=== PATIENT | female | born 1945 | race Caucasian/White ===

== ENCOUNTER 2018-10-30 04:39 | Emergency (ER) | payer OTHER ==
[2018-10-30] MEDS ORDERED: ASPIRIN 81 MG CHEWABLE TAB PO ONE (05:03)
[2018-10-30] MEDS ORDERED: NITROGLYCERIN 0.4 MG BTL SL ONE (05:11)
--- NOTE | 2018-10-30 05:16 | EDPHY ---
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 This morning. She was already awake at the time when the pain started gradually. She describes the pain as dull and it radiates to her left shoulder and upper back. She had pain in her left shoulder and back yesterday but thought it was from using her computer all day. The pain is worse when she takes a deep breath and nothing seems to relieve the pain. She took 1 Vicodin prior to arrival. She denies shortness of breath , nausea, vomiting, or diaphoresis. No recent illness. REVIEW OF SYSTEMS: Constitutional: No fever, no chills. Eyes: No discharge. ENT: No sore throat. Respiratory: No cough, no shortness of breath. Cardiac: No palpitations. Gastrointestinal: No abdominal pain, no vomiting. Genitourinary: No dysuria. Musculoskeletal: No leg pain or swelling. Skin: No rashes. Neurological: No headache. Source: Patient, Family (daughter) - Personal History Current Tetanus Diphtheria and Acellular Pertussis (TDAP): No Tetanus Vaccine Date: within 10 years - Medical/Surgical History PMH: PMH: Radiation induced coronary artery disease requiring angioplasty in 1997, normal nuclear stress test in 2011, breast cancer diagnosed 1st in 1978 with a recurrence in 1981, hyperlipidemia, gout, history of chronic bronchitis, history of diverticulitis, history of cardiac murmur due to aortic sclerosis. PSH: Left simple mastectomy in , knee arthroscopy followed by bilateral total knee arthroplasties, appendectomy, bilateral cataract surgery. FH: Mother from a myocardial infarction at age 70, maternal grandfather had a stroke. Her father had prostate cancer. No history of premature coronary artery disease or clotting disorders. Allergy to penicillin which causes a rash Medications include atenolol 50 mg daily, low-dose aspirin, lisinopril/ hydrochlorothiazide 20-12.5 1 tablet daily, omeprazole 40 mg daily, allopurinol 100 mg daily sertraline 50 mg daily, simvastatin 40 mg daily. O2 at night. PCP: Dr. Neymar Marroquin; primary clock and watch assembler Dr. Melchor Galvez. Hx Asthma: Yes Hx Chronic Respiratory Disease: Yes Hx Diabetes: No Hx Cardiac Disease: Yes Hx Renal Disease: No Hx Cirrhosis: No Hx Alcoholism: No Hx HIV/AIDS: No Hx Splenectomy or Spleen Trauma: No Other PMH: high cholesterol, HTN. breast CA with left mastectomy, balloon angioplasty in 1997. diverticulitis, plantar fascitis, chronic bronchitis/ Noeplasium- appy - Social History Smoking Status: Former smoker Additional Social History: The patient quit tobacco in 1981 prior to that she had a 20 [id number] history. Drinks 2 glasses of wine in the evening. She consumes edibles at bedtime. She is . 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 - Physical Exam Exam: General Appearance: Alert, mild distress. VS: Temp 98 F, heart rate 80, respirations 20, blood pressure 151/94, O2 sats 95% on room air, weight 92.5 kg Eyes: Pupils equal and round no pallor or injection. ENT, Mouth: Mucous membranes are moist. Respiratory: There are no retractions, lungs are clear to auscultation. Cardiovascular: Regular rate and rhythm. 2/6 systolic murmur. Gastrointestinal: Abdomen is soft and nontender, no masses, bowel sounds normal. Neurological: Awake and alert, sensory and motor exams grossly normal. Skin: Warm and dry; No clubbing, cyanosis, or edema. Musculoskeletal: Neck is supple, nontender. Trachea midline Psychiatric: Patient is oriented X 3, there is no agitation. DIFFERENTIAL DIAGNOSIS: After history and physical exam differential diagnosis was considered for but not limited to and in no particular order: [Myocardial infarction, myocardial ischemia, unstable angina, musculoskeletal pain, gastroesophageal reflux disease,] Constitutional: Initial Vital Signs Temperature (C) 98 F 10/30/18 04:46 Heart Rate 80 10/30/18 04:46 Respiratory Rate 20 10/30/18 04:46 Blood Pressure 151/94 H 10/30/18 04:46 O2 Sat (%) 95 10/30/18 04:46 O2 Delivery Mode Room Air Allergies/Adverse Reactions: Penicillins Allergy (Intermediate, Verified 09/15/15 13:24) Rash Home Medications: Medication Instructions Recorded Allopurinol [Allopurinol 100 MG 100 mg PO HS 11/15/14 (*)] Aspirin [Aspirin 81mg (*)] 81 mg PO DAILY 11/15/14 Atenolol [Tenormin 50 mg (*)] 50 mg PO DAILY 11/15/14 Fluticasone Nasal [Flonase Nasal 1 sprays NASAL BID PRN 11/15/14 [place]] Lisinopril/Hctz 20/12.5MG 1 ea PO DAILY 11/15/14 [Zestoretic/Prinzide 20/12.5MG (*)] Omeprazole [Prilosec] 40 mg PO HS 11/15/14 Sertraline HCl [Zoloft 50mg (*)] 50 mg PO HS 11/15/14 Simvastatin [Zocor 40 mg] 40 mg PO DAILY18 11/15/14 Ciprofloxacin 09/15/15 Hydrocodon-Acetaminoph 7.5-325 09/15/15 METRONIDAZOLE 09/15/15 Medical Decision Making - Diagnostics EKG Interpretation: EKG at 4:44 a.m. Shows sinus rhythm with a heart rate of 86 and a left bundle branch block. Prior EKG dated November 16, 2014 showed a sinus rhythm with a heart rate of 62, nonspecific intraventricular conduction delay, left ventricular hypertrophy, probable left atrial abnormality, left anterior hemiblock. EKG#2: Normal sinus rhythm with a heart rate of 73, left ventricular hypertrophy with intraventricular conduction delay, secondary repolarization, anterior ST elevation probably due to LVH. Imaging Results: PA/LAT CXR: Calcification of the aortic knob, coarse bronchial markings, no infiltrate or effusion. Similar to EKG dated November 15, 2014. This is by my read. Please refer to final report when available. Imaging: I viewed and interpreted images myself ED Course/Re-evaluation: The patient was seen and examined. Vital signs reviewed. Prior records reviewed. She received aspirin upon arrival. She also received 2 doses of sublingual nitroglycerin which relieved her pain from a 6/10 to a 3/10. She then received 2 mg of morphine. Her pain was almost relieved completely but she became anxious and stated when she moved around on the cot it brought the pain back and caused her heart to "throb" and radiate into her neck. Her 1st EKG showed a left bundle branch block with a heart rate of 80. This was compared to a prior EKG from November 2014 which showed a left anterior hemiblock. Her the patient's 1st troponin was 0.0. Her complete blood count was normal. Her chemistry panel was remarkable for a slightly elevated BUN (34) and creatinine (1.3). Chest x-ray showed a calcified aortic knob and coarse bronchial markings without infiltrate or effusion. This was similar to the CXR from November 2014. This was by my read. The final radiology report should be available later today. [facility] had no beds available, nor did [facility], the patient's 2nd choice. Therefore, she was transferred to [facility] in stable condition. I spoke with physician Dr. Cornelio Potts, who accepted the patient. - Data Points Laboratory Results: 10/30/18 10/30/18 05:03 05:01 POC Sodium 143 mEq/L mEq/L (135-145) POC Potassium 4.3 mEq/L mEq/L (3.3-5.0) POC Chloride 109.0 mEq/L mEq/L (97-110) POC Total CO2 22 mEq/L mEq/L (22-31) POC BUN 34 mg/dL H mg/dL (7-23) POC Creatinine 1.3 mg/dL H mg/dL (0.6-1.0) POC Glucose 115 mg/dL H mg/dL (70-100) POC Calcium 9.8 mg/dL mg/dL (8.5-10.4) POC Total Bilirubin 0.5 mg/dL mg/dL (0.1-1.4) POC AST 32 IU/L IU/L (14-46) POC ALT 28 IU/L IU/L (9-52) POC Alk Phosphatase 55 IU/L IU/L (38-126) POC Troponin I 0.00 ng/mL ng/mL (0.00-0.08) POC Total Protein 6.9 g/dL g/dL (6.3-8.2) POC Albumin 4.0 g/dL g/dL (3.5-5.0) Medications Given: Discontinued Medications Aspirin (Aspirin) 324 mg PO EDNOW ONE Stop: 10/30/18 05:04 Last Admin: 10/30/18 05:06 Dose: 324 mg Nitroglycerin (Nitrostat) 0.4 mg SL EDNOW ONE Stop: 10/30/18 05:12 Last Admin: 02/14/19 05:13 Dose: 0.4 btl Point of Care Test Results: CBC CBC Collection Date 10/30/18 CBC Collection Time 04:58 WBC 4.83 RBC 4.32 HGB 13.1 HCT 39.7 PLT 99 Neut # 3.38 Neut 69.9 LYMPH # 0.95 LYMPH 19.7 MCV 91.9 Chemistry 10/30/18 10/30/18 05:03 05:01 POC Sodium 143 mEq/L mEq/L (135-145) POC Potassium 4.3 mEq/L mEq/L (3.3-5.0) POC Chloride 109.0 mEq/L mEq/L (97-110) POC Total CO2 22 mEq/L mEq/L (22-31) POC BUN 34 mg/dL H mg/dL (7-23) POC Creatinine 1.3 mg/dL H mg/dL (0.6-1.0) POC Glucose 115 mg/dL H mg/dL (70-100) POC Calcium 9.8 mg/dL mg/dL (8.5-10.4) POC Total Bilirubin 0.5 mg/dL mg/dL (0.1-1.4) POC AST 32 IU/L IU/L (14-46) POC ALT 28 IU/L IU/L (9-52) POC Alk Phosphatase 55 IU/L IU/L (38-126) POC Troponin I 0.00 ng/mL ng/mL (0.00-0.08) POC Total Protein 6.9 g/dL g/dL (6.3-8.2) POC Albumin 4.0 g/dL g/dL (3.5-5.0) Departure - Departure Disposition: Acute Care Hospital Not [facility] Clinical Impression: Chest pain in adult Condition: Good
[2018-10-30 07:18] VITALS: BP 122/75
--- NOTE | 2018-11-01 05:40 | CPEKG ---
Test Reason : OPEN Blood Pressure : / mmHG Vent. Rate : 073 BPM Atrial Rate : 074 BPM P-R Int : 182 ms QRS Dur : 119 ms QT Int : 386 ms P-R-T Axes : 054 -32 061 degrees QTc Int : 426 ms Sinus rhythm LVH with IVCD and secondary repol abnrm Anterior ST elevation, probably due to LVH Confirmed by Madison Jones [id number] on 11/01/2018 5:40:00 AM Referred By: Madison Jones Confirmed By:Madison Jones
== END 2018-10-30 07:20 | disposition short-term general hospital (02) ==
LOC: CED 04:39
DX: R07.9 Chest pain, unspecified (principal); I10 Essential (primary) hypertension; E78.5 Hyperlipidemia, unspecified; I25.10 Atherosclerotic heart disease of native coronary artery without angina pectoris; Z85.3 Personal history of malignant neoplasm of breast; Z95.5 Presence of coronary angioplasty implant and graft; Z87.891 Personal history of nicotine dependence; Z88.0 Allergy status to penicillin
CPT/HCPCS: 71046-PO; 80053-ER; 84484-ER; 96374-ER; J2270